=== PATIENT | female | born 1965 | race Caucasian/White ===

== ENCOUNTER → 2017-09-17 | Outpatient (RCR) | payer BC, OTHER | END | disposition still patient (30) | LOC: WSPT | DX: I89.0 Lymphedema, not elsewhere classified (principal); Z85.3 Personal history of malignant neoplasm of breast ==

== ENCOUNTER 2017-11-13 15:30 | Outpatient (RCR) | payer BC, OTHER | END 2017-11-22 09:44 | disposition home or self-care (01) | LOC: WSPT 15:30 | DX: I89.0 Lymphedema, not elsewhere classified (principal) ==